=== PATIENT | male | born 1960 ===

== ENCOUNTER → 2016-06-23 | Outpatient (CLI) | payer BC ==
[2016-06-23 13:28] LABS: BLOOD UREA NITROGEN 20 mg/dl (7-18); BUN/CREATININE RATIO 17.7 (10-20)
== END | disposition home or self-care (01) ==
LOC: C.LABMFLN 10:25
PROVIDERS: ATTEND Urology
DX: R97.20 Elevated prostate specific antigen [PSA] (principal)

== ENCOUNTER → 2016-11-30 | Outpatient (CLI) | payer BC ==
[2016-11-30 15:02] LABS: % FREE PSA 13.2 %; FREE PSA 0.7 ng/ml; PROSTATE SPECIFIC ANTIGEN 5.3 ng/ml (0.000-4.000)
[2016-11-30 15:07] LABS: CHOLESTEROL/HDL RATIO 4.9
== END | disposition home or self-care (01) ==
LOC: C.LABMFLN 07:40
PROVIDERS: ATTEND Family Medicine
DX: E78.00 Pure hypercholesterolemia, unspecified (principal); R97.20 Elevated prostate specific antigen [PSA]